=== PATIENT | male | born 1985 | race Hispanic/Latino ===

== ENCOUNTER 2018-07-28 19:31 | Emergency (ER) | payer OTHER ==
[~2018-07-28 19:31] MED LIST: ISOVUE-370 76%-LOCM 1 ML ONE
[2018-07-28 20:14] LABS: #Basophils 0.1 thou/uL (0.0-0.2); #Eosinphils 0.4 thou/uL (0.0-0.7); #Lymphocytes 2.7 thou/uL (1.20-3.40); #Monocytes 0.5 thou/uL (0.11-0.59); #Neutrophils 4.3 thou/uL (1.40-6.50); %Eosinophils 4.8 % (0.0-10.0); %Lymphocytes 34.1 % (21.0-51.0); %Monocytes 6.3 % (0.0-10.0); %Neutrophils 53.9 % (42.0-75.0); Hemoglobin 15.2 g/dL (14.0-18.0); Mean Corpuscular HGB CONC 35.6 g/dL (32.0-36.0); Mean Corpuscular Hemoglobin 30.7 pg (27.0-31.0); Mean Corpuscular Volume 86.3 fL (78.0-98.0); Mean Platelet Volume 8.1 fL (7.4-10.4); Platelet Count 264 thou/uL (130-400); RBC Distribution Width 11.7 % (11.5-14.5); Red Blood Cell (RBC) Count 4.96 mill/uL (4.70-6.10)
[2018-07-28 20:36] LABS: ALT (SGPT) 34 U/L (8-55); AST (SGOT) 20 U/L (5-34); Albumin 4.4 g/dL (3.5-5.0); Alkaline Phosphatase 112 U/L (40-150); Anion Gap 8 mmol/L (10-20); BUN (Urea Nitrogen) 14 mg/dL (8.9-20.6); Bilirubin, Total 0.6 mg/dL (0.2-1.2); Calc. Creatinine Clearance 0 mL/min (70-130); Calcium 9.9 mg/dL (7.8-10.44); Carbon Dioxide 32 mmol/L (22-29); Chloride 98 mmol/L (98-107); Estimated GFR-MDRD 85; Globulin 2.9 g/dL (2.4-3.5); Glucose 274 mg/dL (70-105); Lipase 49 U/L (8-78); Protein, Total 7.3 g/dL (6.0-8.3); Sodium 134 mmol/L (136-145)
[2018-07-28] MEDS ORDERED: Dicyclomine 20 MG TAB ONE (20:47)
[2018-07-28] MEDS ORDERED: Ondansetron PF 4 MG/2 ML Vial ONE (20:47)
[2018-07-28 21:12] LABS: Bilirubin Negative (Negative); Blood, Urine Negative (Negative); Clarity CLEAR (Clear); Glucose, Urine (Dipstick) 500 mg/dL (Negative); Leukocyte Negative (Negative); Nitrite Negative (Negative); Protein, Urine (Dipstick) Negative (Neg-Trace); Specific Gravity, Urine 1.022 (1.002-1.036); pH, Urine 7.5 (5.0-9.0)
--- NOTE | 2018-07-28 22:36 | CT ---
ABDOMEN AND PELVIS CT WITH IV CONTRAST: 07/28/18 COMPARISON: 10/22/14. HISTORY: Abdominal pain and diarrhea for two months. TECHNIQUE: Serial axial CT imaging at 5 mm intervals through abdomen and pelvis with IV contrast. Coronal reform atted imaging obtained. FINDINGS: The lack of oral contrast limits assessment of the bowel. The imaged lung bases are unremarkable. No free intraperitoneal air or fluid. Liver, spleen, pancreas, gallbladder, adrenal glands, and kidneys appear grossly unremarkable. No evidence for bowel inflammatory change or obstruction. The appendix is visualized and is within no rmal limits. The vascular structures appear patent. No lymphadenopathy is noted within the abdomen or pelvis. The osseous structures demonstrate no acute findings. IMPRESSION: Unremarkable CT of abdomen and pelvis. POS: [facility]
== END 2018-07-28 23:44 | disposition home or self-care (01) ==
LOC: ERS 19:31
DX: R10.32 Left lower quadrant pain (principal); R10.12 Left upper quadrant pain; R19.7 Diarrhea, unspecified; E11.9 Type 2 diabetes mellitus without complications; E78.5 Hyperlipidemia, unspecified; I10 Essential (primary) hypertension; F43.10 Post-traumatic stress disorder, unspecified
CPT/HCPCS: 36415; 74177; 80053; 81003; 83690; 85025; 96361; 96374; J2405